=== PATIENT | female | born 1985 | race Caucasian/White ===

== ENCOUNTER → 2020-05-16 00:06 | Observation (INO) | END | disposition home or self-care (01) | LOC: 1NENULAB | PROVIDERS: ADMIT Obstetrics & Gynecology; ATTEND Obstetrics & Gynecology ==

== ENCOUNTER → 2020-08-01 11:30 | Observation (INO) | END | disposition home health service (06) | LOC: 1NENULAB | PROVIDERS: ADMIT Student in an Organized Health Care Education/Training Program; ATTEND Student in an Organized Health Care Education/Training Program ==

== ENCOUNTER → 2020-08-14 00:41 | Observation (INO) ==
[2020-08-13 23:11] LABS: Bacteria,Urine Few per hpf (None-Few); Bilirubin,Urine Negative (Negative); Blood,Urine Negative (Negative); Clarity,Urine Turbid (Clear); Color,Urine Light-Yellow (Yellow); Glucose,Urine (UA) Normal (Normal); Ketones,Urine 10 mg/dL (Negative); Leukocyte Esterase,Urine Negative (Negative); Mucus,Urine Few per lpf (None-Few); Nitrite,Urine Negative (Negative); Protein,Urine Trace mg/dL (Neg-Trace); RBC,Urine 0-3 per hpf (0-3); Specific Gravity,Urine 1.017 (1.010-1.025); Squamous Epithelial Cell,Urine Few per hpf (None-Few); Urobilinogen,Urine Normal (Normal); WBC,Urine 0-3 per hpf (0-3)
== END | disposition home or self-care (01) ==
LOC: 1NENULAB
PROVIDERS: ADMIT Obstetrics & Gynecology; ATTEND Obstetrics & Gynecology

== ENCOUNTER 2020-09-09 03:49 | Inpatient (IN) ==
[2020-09-09] MEDS ORDERED: miSOPROStoL 25 MCG TABLET VG PRN (04:00)
[2020-09-09] MEDS ORDERED: Metoclopramide 10 MG/2 ML VIAL IVP PRN (04:00)
[2020-09-09] MEDS ORDERED: Ondansetron 4 MG/2 ML VIAL IVP PRN ×2 (04:00→08:10)
[2020-09-09] MEDS ORDERED: Lidocaine 1% 20 ML MDV INFILT PRN (04:00)
[2020-09-09] MEDS ORDERED: Naloxone 0.4 MG/ML INJ IVP PRN ×2 (04:00→08:10)
[2020-09-09] MEDS ORDERED: Famotidine 20 MG/2 ML VIAL IVP PRN (04:00)
[2020-09-09] MEDS ORDERED: *HR* Nalbuphine 10 MG/ML AMPUL IV PRN (04:00)
[2020-09-09] MEDS ORDERED: Azithromycin 500 MG in 0.9 % Sodium Chloride 250 ML IVPB ONE (04:00)
[2020-09-09 04:54] LABS: Basophils # 0.1 K/mcL (0.0-0.2); Basophils % 0.4 %; Eosinophils # 0.1 K/mcL (0.0-0.6); Eosinophils % 0.9 %; Hematocrit 36.4 % (35.3-44.9); Hemoglobin 11.7 g/dL (11.5-15.4); Immature Granulocytes % 0.6 % (0-4); Lymphocytes # 3.1 K/mcL (0.6-4.6); Lymphocytes % 22.5 %; Mean Corpuscular HGB Conc 32.1 g/dL (31.6-35.5); Mean Corpuscular Hemoglobin 29.3 pg (28.0-33.3); Mean Platelet Volume 10.4 fL (9.4-12.4); Monocytes # 0.7 K/mcL (0.0-1.3); Monocytes % 4.7 %; Neutrophils # 9.9 K/mcL (1.6-8.9); Platelet Count 224 K/mcL (140-400); Red Cell Distribution Width 14.6 % (11.5-14.5); Segmented Neutrophils % 70.9 %; White Blood Count 13.9 K/mcL (4.3-11.1)
[2020-09-09 04:57] LABS: Amphetamine Screen,Urine Negative ng/mL (Cutoff=1000); Barbiturate Screen,Urine Negative ng/mL (Cutoff=200); Benzodiazepines Screen,Urine Negative ng/mL (Cutoff=200); Cannabinoid Screen,Urine Negative ng/mL (Cutoff = 50); Cocaine Screen,Urine Negative ng/mL (Cutoff= 300); Opiate Screen,Urine Negative ng/mL (Cutoff=300); Phencyclidine Screen,Urine Negative ng/mL (Cutoff=25)
[2020-09-09 05:05] LABS: Glucose 89 mg/dL (70-105)
[2020-09-09 05:17] LABS: Alanine Aminotransferase 7 Units/L (7-52); Aspartate Amino Transferase 8 Units/L (13-39); BUN/Creatinine Ratio 15 (6-26); Blood Urea Nitrogen 8 mg/dL (6-20); Lactate Dehydrogenase 100 Units/L (140-271); Uric Acid 3.8 mg/dL (2.3-7.6); eGFR For African Americans > 60 (> 60); eGFR For Non-African Americans > 60 (> 60)
[2020-09-09 05:41] LABS: Protein/Creatinine Ratio,Urine 0.21 mg/mg (0.00-0.20)
[2020-09-09] MEDS ORDERED: Ropivacaine/PF 0.2% 20 ML VIAL EP ONE (08:10)
[2020-09-09] MEDS ORDERED: EPHEDrine 50 MG/ML VIAL IVP PRN (08:10)
[2020-09-09] MEDS ORDERED: Ropivacaine/PF 0.2% 20 ML VIAL ONE ×2 (09:04→23:29)
[2020-09-09] MEDS: Ringers Solution, Lactated 1,000 ML IVC SCH ×2 (09:15→11:55)
[2020-09-09] MEDS: Epidural Premix (fent/bupiv) 110 ML EP SCH ×2 (09:32→19:00)
[2020-09-09] MEDS ORDERED: Oxytocin 20 units/ LR 1000 mL 20 UNIT/1,000 ML BAG IVC SCH (11:30)
[2020-09-09] MEDS ORDERED: Acetaminophen 325 MG TABLET PO ONE (19:19)
[2020-09-10] MEDS: Epidural Premix (fent/bupiv) 110 ML EP SCH
[2020-09-10] MEDS ORDERED: Lanolin 7 G OINT...G. TP PRN (04:05)
[2020-09-10] MEDS ORDERED: Oxytocin 20 units/ LR 1000 mL 20 UNIT/1,000 ML BAG IVC SCH (04:05)
[2020-09-10] MEDS ORDERED: *HR* HYDROcodone/Acet 5/325 mg TABLET PO PRN (04:05)
[2020-09-10] MEDS ORDERED: Acetaminophen 325 MG TABLET PO PRN (04:05)
[2020-09-10] MEDS ORDERED: Benzocaine/Menthol 56 GM AEROSOL SPRAY TP PRN (04:05)
[2020-09-10] MEDS: Prenatal Vit/FA 1 EACH TABLET PO SCH (07:22)
[2020-09-10] MEDS: Ibuprofen 600 MG TABLET PO PRN (19:44)
[2020-09-11 03:57] LABS: Basophils # 0.1 K/mcL (0.0-0.2); Basophils % 0.4 %; Eosinophils # 0.2 K/mcL (0.0-0.6); Eosinophils % 1.1 %; Hematocrit 30.1 % (35.3-44.9); Immature Granulocytes % 0.8 % (0-4); Lymphocytes # 3.3 K/mcL (0.6-4.6); Lymphocytes % 24.6 %; Mean Corpuscular HGB Conc 31.9 g/dL (31.6-35.5); Mean Corpuscular Hemoglobin 29.4 pg (28.0-33.3); Mean Corpuscular Volume 92.3 fL (83.0-100.0); Mean Platelet Volume 10.6 fL (9.4-12.4); Monocytes # 0.8 K/mcL (0.0-1.3); Monocytes % 6.2 %; Neutrophils # 9.1 K/mcL (1.6-8.9); Platelet Count 188 K/mcL (140-400); Red Blood Count 3.26 M/mcL (3.82-4.97); Red Cell Distribution Width 14.8 % (11.5-14.5); Segmented Neutrophils % 66.9 %; White Blood Count 13.6 K/mcL (4.3-11.1)
[2020-09-11 03:59] LABS: Hemoglobin 9.6 g/dL (11.5-15.4)
[2020-09-11] MEDS: Prenatal Vit/FA 1 EACH TABLET PO SCH (07:38)
[2020-09-11] MEDS: Ibuprofen 600 MG TABLET PO PRN (07:38)
[2020-09-11 08:11] VITALS: BP 119/78
== END 2020-09-11 13:39 | disposition home or self-care (01) | DRG 807 ==
LOC: 1NENULAB 03:49 → 1NENUOBS 09-10 02:54
PROVIDERS: ADMIT Obstetrics & Gynecology; ATTEND Obstetrics & Gynecology